=== PATIENT | male | born 2005 | race Caucasian/White ===

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

== ENCOUNTER 2023-10-22 12:06 | Emergency (ER) | payer OTHER, SELFPAY ==
[2023-10-22] VITALS (7 sets, daily range): BP systolic 139–170; BP diastolic 64–74; PULSE 64–85; RESP 16–21; TEMP 36.3–36.9; O2SAT 95–98
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
[2023-10-22 12:25] LABS: Abs Immature Grans 0.04 10^3/uL (0.0-0.06); Absolute Basophil Count 0.04 10^3/uL (0.0-0.2); Absolute Eosinophil Count 0.19 10^3/uL (0.0-0.7); Absolute Lymphocyte Count 2.24 10^3/uL (1.2-3.4); Absolute Monocyte Count 0.52 10^3/uL (0.1-0.8); Absolute Neutrophil Count 3.62 10^3/uL (1.2-6.7); Basophils % 0.6 %; Eosinophils % 2.9 %; HCT 47.1 % (40.0-50.0); HGB 16.2 g/dL (13.5-17.5); Immature Grans % 0.6 %; Lymphocytes % 33.7 %; MCH 28.8 pg (27.0-33.0); MCHC 34.4 % (32.0-36.0); MCV 84 fL (80-95); MPV 9.4 fL (8.0-11.0); Monocytes % 7.8 %; Neutrophils % 54.4 %; Platelet Count 305 10^3/uL (130-400); RBC 5.63 10^6/uL (4.36-5.78); RDW 12.6 % (11.8-14.1); RDW-SD 38.6 fL; WBC 6.65 10^3/uL (4.4-10.8)
[2023-10-22] MEDS: MORPHine 4 MG/ML SYR IVP (12:26)
[2023-10-22] MEDS: Omnipaque 350 MG/ML 100 ML BTL IJ (12:26)
[2023-10-22] MEDS: Ondansetron 4 MG/2 ML VIAL IVP (12:26)
[2023-10-22] MEDS: Normal Saline - Diluent 50 ML VIAL IJ (12:27)
[2023-10-22] MEDS: Normal Saline 1,000 ML 1000 ML IV (12:33)
[2023-10-22 12:43] LABS: ALT 56 U/L (16-63); AST 32 U/L (15-37); Alkaline Phosphatase 89 U/L (46-116); Anion Gap 7.4 mmol/L (3-11); BUN 20 mg/dL (7-18); Bilirubin, Total 0.76 mg/dL (0.2-1.0); CO2 26.6 mmol/L (21.0-32.0); CREATININE 1.1 mg/dL (0.70-1.30); Calcium 9.3 mg/dL (8.5-10.1); Chloride 104 mmol/L (98-107); Estimated GFR 98.56 (mL/min/1.73m2); Glucose 139 mg/dL (74-106); Magnesium 1.8 mg/dL (1.8-2.4); Potassium 3.6 mmol/L (3.5-5.1); Sodium 138 mmol/L (136-145); Total Protein 7.1 g/dL (6.4-8.2)
[2023-10-22 12:46] LABS: Troponin I < 4 ng/L (4-76)
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
[2023-10-22] MEDS: HYDROmorphone 2 MG/ML SYR 0.5 MG IVP (13:48)
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
[2023-10-22] MEDS: HYDROmorphone 2 MG/ML SYR (15:12)
== END 2023-10-22 15:19 | disposition short-term general hospital (02) ==
PROVIDERS: Emergency Provider Registered Nurse Emergency; PCP Nurse Practitioner Pediatrics
DX: S12.040A Displaced lateral mass fracture of first cervical vertebra, initial encounter for closed fracture (principal); V27.49XA Other motorcycle driver injured in collision with fixed or stationary object in traffic accident, initial encounter
CPT/HCPCS: 36415; 74177; 80053; 90715; 96374; 96375; 99285; 70450; 71260; 72125; 73030; 73090; 83735; 84484; 85025; J1170; J2270; J2405; J3490